=== PATIENT | female | born 1960 | race Caucasian/White ===

== ENCOUNTER 2020-12-24 14:49 | Inpatient (IN) | payer MEDICARE, OTHER ==
[~2020-12-24] VITALS: Ht 154.9 cm; Wt 67.1 kg
[2020-12-24] MEDS ORDERED: ATOR20TA PO (15:04)
[2020-12-24] MEDS ORDERED: LISI30TA4 PO (15:04)
[2020-12-24] MEDS ORDERED: QUET50TA PO (15:04)
[2020-12-24] MEDS ORDERED: OLAN20TA3 PO (15:04)
[2020-12-24 16:17] LABS: HEMATOCRIT 37.8 % (31.2-41.9); MEAN CORPUSCULAR VOLUME 89.3 fL (75.5-95.3); PLATELET COUNT (AUTO) 220 K/uL (179-408)
[2020-12-24 16:33] LABS: CARBON DIOXIDE 27 mmol/L (21-32); CHLORIDE 97 mmol/L (98-107); CREATININE 0.8 mg/dL (0.6-1.3); GLUCOSE 105 mg/dL (74-106); POTASSIUM 4.2 mmol/L (3.5-5.1); UREA NITROGEN, BLOOD 23 mg/dL (7-18)
[2020-12-24 16:37] LABS: ALANINE AMINOTRANSFERASE 30 U/L (14-59); ALKALINE PHOSPHATASE 80 U/L (50-136); ASPARTATE AMINOTRANSFERASE 20 U/L (15-37); BILIRUBIN,DIRECT 0.1 mg/dL (0.0-0.2); BILIRUBIN,TOTAL 0.2 mg/dL (0.2-1.0); TOTAL PROTEIN, SERUM 7.9 g/dL (6.4-8.2)
[2020-12-24 16:42] LABS: THYROID STIMULATING HORMONE 0.577 mIU/mL (0.358-3.740)
[2020-12-24 16:43] LABS: ACETAMINOPHEN < 2.0 ug/mL (10-30)
[2020-12-24 16:44] LABS: ETHANOL < 3 MG/DL (0-0)
[2020-12-24 17:05] LABS: *BILIRUBIN,URIN NEGATIVE (NEGATIVE); *CLARITY,URINE CLEAR (CLEAR); *COLOR,URINE LIGHT YELLOW (YELLOW); *KETONES,URINE NEGATIVE (NEGATIVE); *UROBILINOGEN,URINE 0.2 E.U./dl (NORMAL); LEUKOCYTE ESTERASE ,URINE TRACE (NEGATIVE); NITRITE, URINE NEGATIVE (NEGATIVE); PH,URINE 6.5 (5.0-8.0); UGLUCOSE NEGATIVE (NEGATIVE)
[2020-12-24 17:15] LABS: *AMPHETAMINE, URINE NEGATIVE (NEGATIVE); *BLOOD, URINE TRACE LYSED (NEGATIVE); *CANNABINOID, URINE NEGATIVE (NEGATIVE); *COCCAINE, URINE NEGATIVE (NEGATIVE); *OPIATE, URINE NEGATIVE (NEGATIVE); *PHENCYCLIDINE SCREEN,URINE NEGATIVE (NEGATIVE)
[2020-12-24 18:05] LABS: BACTERIA,URINE NONE SEEN /HPF (NONE SEEN); RBC,URINE 0-3 /HPF (0-3); WBC,URINE 0-3 /HPF (0-3)
[2020-12-24] MEDS ORDERED: OLANZAPINE 10 MG VIAL IM ONE ×2 (18:30→18:37)
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
[2020-12-24] MEDS ORDERED: LORAZEPAM 2 MG/1 ML VIAL IM ONE (20:00)
[2020-12-24] MEDS ORDERED: LORAZEPAM 2 MG/1 ML VIAL ONE (20:03)
[2020-12-24] MEDS ORDERED: KETAMINE HCL 500 MG/10 ML INJ ONE (20:30)
[2020-12-24] MEDS ORDERED: KETAMINE HCL 500 MG/10 ML INJ IM ONE (20:30)
[2020-12-24] MEDS ORDERED: ONDANSETRON 4 MG/2 ML VIAL IM ONE (22:00)
--- NOTE | 2020-12-24 22:20 | NUR ---
GAVE REPORT TO MILES VILLALPANDO.
[2020-12-24] MEDS ORDERED: ONDANSETRON 4 MG/2 ML VIAL ONE (22:21)
[2020-12-24] MEDS ORDERED: MAGNESIUM HYDROXIDE 30 ML LIQUID UDC PO PRN (22:45)
[2020-12-24] MEDS ORDERED: LORAZEPAM 1 MG TABLET PO PRN (22:45)
[2020-12-24] MEDS ORDERED: MAG HYDROX/AL HYDROX/SIMETH 30 ML LIQUID UDC PO PRN (22:45)
[2020-12-24] MEDS ORDERED: ACETAMINOPHEN 325 MG TABLET PO PRN (22:45)
[2020-12-24] MEDS ORDERED: TEMAZEPAM 7.5 MG CAPSULE PO PRN (22:45)
--- NOTE | 2020-12-24 23:00 | NUR ---
Pt. admitted to [facility] , under care of Dr. Cuadra and Dyana. Dx: psychosis 5150 hld DTO, GD. Belongs List completed
[2020-12-24 23:17] VITALS: BP 122/81
[2020-12-24] MEDS ORDERED: hydrALAZINE HCL 10 MG TABLET PO PRN (23:30)
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
[2020-12-25 07:30] VITALS: BP 98/68
[2020-12-25] MEDS: NICOTINE 21 MG/24HR PATCH TD SCH (08:34)
[2020-12-25] MEDS: LISINOPRIL 20 MG TABLET PO SCH (08:34)
[2020-12-25] MEDS ORDERED: Medication Not On Formulary EA (Quetiapine Fumarate (Seroquel) 50 MG) PO SCH (09:00)
[2020-12-25 09:26] LABS: BILIRUBIN,TOTAL 0.2 mg/dL (0.2-1.0); CREATININE 0.8 mg/dL (0.6-1.3); POTASSIUM 4.3 mmol/L (3.5-5.1); TOTAL PROTEIN, SERUM 7.2 g/dL (6.4-8.2)
--- NOTE | 2020-12-25 09:50 | NUR ---
EDWIGE Initial Discharge Plan: Pt resides at [facility] [address], [place] [address] ([phone]) and will return when ready for discharge. EDWIGE will continue to work with patient and MD to ensure a safe and proper discharge plan.
--- NOTE | 2020-12-25 10:08 | NUR ---
SW Facility Contact: EDWIGE spoke with Vic from [facility] [address], [place] [address] ([phone]) who confirmed patient is welcome back upon discharge.
--- NOTE | 2020-12-25 10:27 | NUR ---
Firearms Report: Polytechnic Registrar completed and submitted a [employer] firearms report for 5150 grave disability certifications. A copy of report has been placed in patient chart.
--- NOTE | 2020-12-25 10:41 | NUR ---
EDWIGE Conservator Contact: EDWIGE contacted Public Guardian Conservator Carolyn Grewal ([phone]) and left a voicemail for request conservatorship documentation and discuss patient's treatment and discharge plan.
[2020-12-25 16:27] VITALS: BP 110/73
[2020-12-25 20:00] VITALS: BP 119/81
[2020-12-25] MEDS: ATORVASTATIN 20 MG TABLET PO SCH (20:21)
[2020-12-25] MEDS: OLANZAPINE 5 MG TABLET PO SCH (20:21)
[2020-12-25] MEDS: DIVALPROEX 250 MG TABLET.DR PO SCH (20:21)
[2020-12-26 07:52] VITALS: BP 126/82
[2020-12-26] MEDS: NICOTINE 21 MG/24HR PATCH TD SCH (08:08)
[2020-12-26] MEDS: DIVALPROEX 250 MG TABLET.DR PO SCH ×2 (08:08→20:33)
[2020-12-26] MEDS: LISINOPRIL 20 MG TABLET PO SCH (08:08)
[2020-12-26 16:32] VITALS: BP 111/75
[2020-12-26 20:00] VITALS: BP 106/70
[2020-12-26] MEDS: ATORVASTATIN 20 MG TABLET PO SCH (20:33)
[2020-12-26] MEDS: OLANZAPINE 5 MG TABLET PO SCH (20:33)
[2020-12-27 07:30] VITALS: BP 134/87
[2020-12-27] MEDS: LISINOPRIL 20 MG TABLET PO SCH (08:03)
[2020-12-27] MEDS: NICOTINE 21 MG/24HR PATCH TD SCH (08:03)
[2020-12-27] MEDS: DIVALPROEX 250 MG TABLET.DR PO SCH ×3 (08:03→20:03)
[2020-12-27 15:50] VITALS: BP 112/83
[2020-12-27 19:58] VITALS: BP 128/77
[2020-12-27] MEDS: ATORVASTATIN 20 MG TABLET PO SCH (20:03)
[2020-12-27] MEDS: OLANZAPINE 5 MG TABLET PO SCH (20:04)
[2020-12-28 08:12] VITALS: BP 137/88
[2020-12-28] MEDS: NICOTINE 21 MG/24HR PATCH TD SCH (08:52)
[2020-12-28] MEDS: DIVALPROEX 250 MG TABLET.DR PO SCH ×3 (08:52→20:05)
[2020-12-28] MEDS: LISINOPRIL 20 MG TABLET PO SCH (08:53)
[2020-12-28 16:14] VITALS: BP 133/91
[2020-12-28 19:53] VITALS: BP 100/60
[2020-12-28] MEDS: OLANZAPINE 5 MG TABLET PO SCH (20:05)
[2020-12-28] MEDS: ATORVASTATIN 20 MG TABLET PO SCH (20:05)
[2020-12-29 07:30] VITALS: BP 122/80
[2020-12-29] MEDS: NICOTINE 21 MG/24HR PATCH TD SCH (08:28)
[2020-12-29] MEDS: DIVALPROEX 250 MG TABLET.DR PO SCH ×3 (08:29→20:01)
[2020-12-29] MEDS: LISINOPRIL 20 MG TABLET PO SCH (08:29)
--- NOTE | 2020-12-29 11:02 | NUR ---
GPS: PT RECEIVED TODAY, AWAKE, PACING THE HALLWAY.PT WENT BACK TO HER ROOM LAYING DOWN QUIETLY. COMPLIANT WITH MEDICATIONS AND COOPERATIVE WITH CARE.
[2020-12-29 16:07] VITALS: BP 106/66
--- NOTE | 2020-12-29 17:32 | NUR ---
GPS: PT LIKES PACING THE HALLWAY. COOPERATIVE WITH CARE AND COMPLIANT WITH MEDICATIONS. PT WITH NO EPISODE OF YELLING, NOT VERBALLY ABUSIVE, AND NOT COMBATIVE.
[2020-12-29] MEDS: OLANZAPINE 5 MG TABLET PO SCH (20:01)
[2020-12-29] MEDS: ATORVASTATIN 20 MG TABLET PO SCH (20:01)
[2020-12-29 22:02] VITALS: BP 101/61
--- NOTE | 2020-12-30 01:24 | NUR ---
Received patient at the start of the shift in bed, with the covers pulled over her head. The blanket she used was stained with BM. This patient is alert and oriented but has no insight to her problems and bizarre behavior. The patient got up and spent about 30 minutes, pacing up and down the bagley, periodically stopping at the nurses station asking for food. No aggressive or combative behavior, and no SI at this time. Patient has been cooperative and medication compliant. Continuing with the plan of care and safety stratiges are in place.
[2020-12-30 07:30] VITALS: BP 119/88
[2020-12-30] MEDS: NICOTINE 21 MG/24HR PATCH TD SCH (08:08)
[2020-12-30] MEDS: LISINOPRIL 20 MG TABLET PO SCH (08:08)
[2020-12-30] MEDS: DIVALPROEX 250 MG TABLET.DR PO SCH ×3 (08:08→20:17)
[2020-12-30 16:00] VITALS: BP 112/67
--- NOTE | 2020-12-30 16:56 | NUR ---
GPS: Remain calm and cooperative with meds and care. occ pacing in the hallway. continue plan of care.
[2020-12-30 20:01] VITALS: BP 95/64
[2020-12-30] MEDS: ATORVASTATIN 20 MG TABLET PO SCH (20:17)
[2020-12-30] MEDS: OLANZAPINE 5 MG TABLET PO SCH (20:17)
[2020-12-31 07:30] VITALS: BP 108/76
[2020-12-31] MEDS ORDERED: OLANZAPINE 5 MG TABLET PO SCH (09:00)
[2020-12-31] MEDS: NICOTINE 21 MG/24HR PATCH TD SCH (09:35)
[2020-12-31] MEDS: DIVALPROEX 250 MG TABLET.DR PO SCH ×3 (09:36→20:37)
[2020-12-31] MEDS: LISINOPRIL 20 MG TABLET PO SCH (09:37)
--- NOTE | 2020-12-31 12:06 | NUR ---
GPS: HEARING DONE WITH PATIENTS RIGHTS PENNY AND COURT AND PT WILL STAY FOR GD. RIGHTS WERE GIVEN AND MET PER PT.
--- NOTE | 2020-12-31 13:57 | NUR ---
SW Facility Contact EDWIGE spoke with Armando at [facility] ([phone]) to confirm SNF can receive patient as she is ready for discharge tomorrow. Armando confirmed they are ready for patient tomorrow and requested updated clinicals. SW faxed Armando ([phone]) patient's updated clinicals.
--- NOTE | 2020-12-31 14:41 | NUR ---
Gps/Thread Singer - easily gets anxious, needy, encouraged to stay in her group therapy during their group sessions, kept asking for drinks and food s, complained of being constipated, prune juice offered.
[2020-12-31 16:00] VITALS: BP 111/77
--- NOTE | 2020-12-31 16:27 | NUR ---
Gps/Environmental Field Technician- Covid 19 swab done, sent to lab. patient was well informed.
[2020-12-31 20:07] VITALS: BP 106/77
[2020-12-31] MEDS: ATORVASTATIN 20 MG TABLET PO SCH (20:37)
[2020-12-31] MEDS: OLANZAPINE 5 MG TABLET PO SCH (20:37)
--- NOTE | 2021-01-01 04:15 | NUR ---
Received to care, lying in bed, isolative, but pleasant, when approached. Compliant with medications. Bedtime snack and fluids were given. As of now she continues to sleep. No distress noted.
[2021-01-01 07:30] VITALS: BP 100/63
[2021-01-01 08:07] VITALS: BP 100/63
[2021-01-01] MEDS: LISINOPRIL 20 MG TABLET PO SCH (08:07)
[2021-01-01] MEDS: NICOTINE 21 MG/24HR PATCH TD SCH (08:09)
[2021-01-01] MEDS: DIVALPROEX 250 MG TABLET.DR PO SCH ×2 (08:09→12:20)
--- NOTE | 2021-01-01 08:27 | NUR ---
EDWIGE Discharge Note Pt will be discharged to [facility] [address], [place] [address] ([phone]) via ambulance transportation at 1PM. EDWIGE spoke with ramon Ho from [facility], who confirmed pt is welcome back today. Pt presents alert and oriented x3 and is willing to accept care provided for her at facility. Pt is aware and agreeable with discharge plan. Pt presents with appropriate mood and congruent affect. Pt denies suicidal or homicidal ideation. Pt will follow up at [facility] with psychiatrist Dr. Suazo and educational program director Dr. Yanez. Patients conservator Carolyn Grewal ([phone]) is aware and agreeable with discharge plan.
--- NOTE | 2021-01-01 12:14 | NUR ---
Gps/Filemaker Developer- tried to call [facility] to give report, unable at this time, no one available to get report at the facility claimed they are busy, will attempt to call back in 30 minutes
--- NOTE | 2021-01-01 13:20 | NUR ---
Gps/Electric Appliance Installer- Discharged to [facility] via ambulance. in no sign of any distress, all belongings given back to patient , no complaints noted . still unable to to give report to Facility , staff are busy to received report, will again attempt to call at a later time. .
--- NOTE | 2021-01-01 14:27 | NUR ---
Gps/Electrical Plumbing Supervisor- Attempted to call facility for the 3rd time to give report, unable , r/t no one to receive report per frontdesk Sec. staff are busy.
--- NOTE | 2021-01-01 15:45 | NUR ---
Gps/Cell Operator- tried to call again to give report, was put on hold for a long time
== END 2021-01-01 13:35 | DRG 885 ==
LOC: ER 14:49 → GPS 22:42
PROVIDERS: ADMIT Nurse Practitioner Psychiatric/Mental Health; ATTEND Internal Medicine
DX: F25.9 Schizoaffective disorder, unspecified (principal); E78.5 Hyperlipidemia, unspecified; I10 Essential (primary) hypertension; I44.7 Left bundle-branch block, unspecified; I49.1 Atrial premature depolarization; Z78.1 Physical restraint status; R79.89 Other specified abnormal findings of blood chemistry; F09 Unspecified mental disorder due to known physiological condition
CPT/HCPCS: 36415; 71045; 80164; 84443; 85025; 93005; A4663; G0480; J2060; J2358; J2405; J3490

== ENCOUNTER 2022-10-06 00:30 | Inpatient (IN) | payer MEDICARE, OTHER ==
[~2022-10-06] VITALS: Ht 167.6 cm; Wt 74.4 kg
[~2022-10-06 00:30] MED LIST: ATOR20TA PO; LISI30TA4 PO
[2022-10-06 00:48] LABS: BASOPHILS % (AUTO) 0.7 % (0.0-2.0); EOSINOPHILS # (AUTO) 0.1 K/uL (0.0-0.7); EOSINOPHILS % (AUTO) 1.8 % (0.0-7.0); HEMATOCRIT 37.2 % (31.2-41.9); HEMOGLOBIN 12.5 g/dL (10.9-14.3); LYMPHOCYTES # (AUTO) 3.1 K/uL (0.8-4.8); MEAN CORPUSCULAR HEMOGLOBIN 29.9 uug (24.7-32.8); MEAN CORPUSCULAR HGB CONC 34 g/dL (32.3-35.6); MEAN CORPUSCULAR VOLUME 88.8 fL (75.5-95.3); MONOCYTES # (AUTO) 0.8 K/uL (0.1-1.30); MONOCYTES % (AUTO) 12.7 % (0.0-11.0); NEUTROPHILS # (AUTO) 2.5 K/uL (1.8-8.9); NEUTROPHILS % (AUTO) 37.8 % (38.5-71.5); PLATELET COUNT (AUTO) 233 K/uL (179-408); RED BLOOD CELL COUNT(AUTO) 4.19 MIL/uL (3.63-4.92); RED CELL DISTRIBUTION WIDTH 14.5 % (12.3-17.7); WHITE BLOOD COUNT (AUTO) 6.6 K/uL (3.8-11.8)
[2022-10-06 01:01] LABS: *BILIRUBIN,URIN NEGATIVE (NEGATIVE); *CLARITY,URINE CLEAR (CLEAR); *COLOR,URINE YELLOW (YELLOW); *KETONES,URINE NEGATIVE (NEGATIVE); *PROTEIN,URINE NEGATIVE (NEGATIVE); *UROBILINOGEN,URINE 0.2 E.U./dl (NORMAL); LEUKOCYTE ESTERASE ,URINE 1+ (NEGATIVE); NITRITE, URINE NEGATIVE (NEGATIVE); UGLUCOSE NEGATIVE (NEGATIVE)
[2022-10-06 01:03] LABS: *BLOOD, URINE TRACE (NEGATIVE)
[2022-10-06 01:04] LABS: ETHANOL < 3 MG/DL (0-10)
[2022-10-06 01:09] LABS: DIFFERENTIAL COMMENT 1
[2022-10-06 01:10] LABS: THYROID STIMULATING HORMONE 3.002 mIU/mL (0.358-3.740)
[2022-10-06 01:10] LABS: *AMPHETAMINE, URINE NEGATIVE (NEGATIVE); *BARBITURATE, URINE NEGATIVE (NEGATIVE); *BENZODIAZEPINE, URINE NEGATIVE (NEGATIVE); *CANNABINOID, URINE NEGATIVE (NEGATIVE); *OPIATE, URINE NEGATIVE (NEGATIVE); *PHENCYCLIDINE SCREEN,URINE NEGATIVE (NEGATIVE); FENTANYL, URINE NEGATIVE (NEGATIVE)
[2022-10-06] MEDS ORDERED: ACET-3117 PO (01:19)
[2022-10-06] MEDS ORDERED: DEME300T12 PO (01:19)
[2022-10-06] MEDS ORDERED: LISI30TA4 PO (01:19)
[2022-10-06] MEDS ORDERED: SODI100010 PO (01:19)
[2022-10-06] MEDS ORDERED: OLAN20TA24 PO (01:19)
[2022-10-06] MEDS ORDERED: ATOR20TA PO (01:19)
[2022-10-06] MEDS ORDERED: LORA-259 PO (01:19)
[2022-10-06 01:32] LABS: *COCCAINE, URINE NEGATIVE (NEGATIVE)
[2022-10-06 01:50] LABS: ALANINE AMINOTRANSFERASE 27 U/L (14-59); ALBUMIN 3.5 g/dL (3.4-5.0); ALKALINE PHOSPHATASE 106 U/L (50-136); ASPARTATE AMINOTRANSFERASE 14 U/L (15-37); BILIRUBIN,DIRECT 0.1 mg/dL (0.0-0.2); BILIRUBIN,TOTAL 0.3 mg/dL (0.2-1.0); CALCIUM 9.5 mg/dL (8.5-10.1); CARBON DIOXIDE 25 mmol/L (21-32); CHLORIDE 94 mmol/L (98-107); CREATININE 0.8 mg/dL (0.6-1.3); GLUCOSE 104 mg/dL (74-106); POTASSIUM 4.2 mmol/L (3.5-5.1); SODIUM SERUM 129 mmol/L (136-145); TOTAL PROTEIN, SERUM 7.4 g/dL (6.4-8.2); UREA NITROGEN, BLOOD 11 mg/dL (7-18)
[2022-10-06 01:52] LABS: ACETAMINOPHEN < 2.0 ug/mL (10-30)
[2022-10-06 04:29] LABS: BACTERIA,URINE NONE SEEN /HPF (NONE SEEN); SQUAMOUS EPITHELIAL CELL,UR FEW /HPF (NONE SEEN)
[2022-10-06] MEDS ORDERED: CEFTRIAXONE /D5W 50ML IVPB **ER PYXIS IV ONE (05:51)
[2022-10-06] MEDS ORDERED: CEFTRIAXONE 1 G in IV DEXTROSE 5% 50 ML IV ONE (06:00)
[2022-10-06] MEDS ORDERED: IV NORMAL SALINE 250 ML IV ONE (06:00)
[2022-10-06] MEDS ORDERED: ACETAMINOPHEN 325 MG TABLET PO PRN (08:30)
[2022-10-06] MEDS ORDERED: MAG HYDROX/AL HYDROX/SIMETH 30 ML LIQUID UDC PO PRN (08:30)
[2022-10-06] MEDS ORDERED: MAGNESIUM HYDROXIDE 30 ML LIQUID UDC PO PRN (08:30)
[2022-10-06] MEDS ORDERED: BLOOD SUGAR DIAGNOSTIC 1 EACH STRIP VI ONE (08:30)
[2022-10-06] MEDS ORDERED: TEMAZEPAM 7.5 MG CAPSULE PO PRN (08:30)
[2022-10-06 08:46] VITALS: BP 102/80; TEMP 98.5; O2SAT 96
[2022-10-06] MEDS: DIVALPROEX SPRINKLE 125 MG CAP.SPRINK PO SCH ×3 (13:00→17:36)
[2022-10-06] MEDS: SODIUM CHLORIDE 1,000 MG TABLET PO SCH ×3 (13:39→20:19)
[2022-10-06] MEDS: QUETIAPINE FUMARATE 25 MG TABLET PO SCH (13:40)
[2022-10-06 15:15] VITALS: BP 139/84; TEMP 98.2; O2SAT 98
[2022-10-06 20:13] VITALS: BP 148/80; TEMP 98.1; O2SAT 96
[2022-10-06] MEDS: DEMECLOCYCLINE HCL 300 MG TABLET PO SCH (20:19)
[2022-10-06] MEDS: ATORVASTATIN 20 MG TABLET PO SCH (20:19)
[2022-10-06] MEDS: OLANZAPINE 5 MG TABLET PO SCH (20:19)
[2022-10-06] MEDS ORDERED: ATORVASTATIN 20 MG TABLET PO SCH (21:00)
[2022-10-07] MEDS: CEphaleXIN 250 MG CAPSULE PO SCH ×3 (06:39→21:44)
[2022-10-07 08:04] VITALS: BP 143/96; TEMP 98.4; O2SAT 98
[2022-10-07] MEDS: SODIUM CHLORIDE 1,000 MG TABLET PO SCH ×4 (08:11→21:44)
[2022-10-07] MEDS: QUETIAPINE FUMARATE 25 MG TABLET PO SCH ×2 (08:11→12:10)
[2022-10-07] MEDS: DIVALPROEX SPRINKLE 125 MG CAP.SPRINK PO SCH ×3 (08:11→16:41)
[2022-10-07] MEDS: DEMECLOCYCLINE HCL 300 MG TABLET PO SCH ×2 (08:12→21:45)
[2022-10-07] MEDS: LISINOPRIL 20 MG TABLET PO SCH (08:14)
[2022-10-07 08:38] LABS: BASOPHILS % (AUTO) 0.5 % (0.0-2.0); EOSINOPHILS # (AUTO) 0.1 K/uL (0.0-0.7); EOSINOPHILS % (AUTO) 0.8 % (0.0-7.0); HEMATOCRIT 36.5 % (31.2-41.9); HEMOGLOBIN 12.1 g/dL (10.9-14.3); LYMPHOCYTES % (AUTO) 30.7 % (20.5-51.5); MEAN CORPUSCULAR HEMOGLOBIN 29.7 uug (24.7-32.8); MEAN CORPUSCULAR HGB CONC 33 g/dL (32.3-35.6); MEAN CORPUSCULAR VOLUME 89.5 fL (75.5-95.3); MONOCYTES # (AUTO) 0.8 K/uL (0.1-1.30); MONOCYTES % (AUTO) 12.3 % (0.0-11.0); NEUTROPHILS # (AUTO) 3.7 K/uL (1.8-8.9); NEUTROPHILS % (AUTO) 55.7 % (38.5-71.5); PLATELET COUNT (AUTO) 255 K/uL (179-408); RED BLOOD CELL COUNT(AUTO) 4.08 MIL/uL (3.63-4.92); RED CELL DISTRIBUTION WIDTH 14.5 % (12.3-17.7); WHITE BLOOD COUNT (AUTO) 6.6 K/uL (3.8-11.8)
[2022-10-07 08:44] LABS: DIFFERENTIAL COMMENT 1
[2022-10-07 09:37] LABS: POTASSIUM 4.6 mmol/L (3.5-5.1)
[2022-10-07 09:38] LABS: ALBUMIN 3.7 g/dL (3.4-5.0); BILIRUBIN,TOTAL 0.3 mg/dL (0.2-1.0); CALCIUM 9.1 mg/dL (8.5-10.1); CREATININE 0.8 mg/dL (0.6-1.3)
[2022-10-07 09:39] LABS: TOTAL PROTEIN, SERUM 7.8 g/dL (6.4-8.2)
[2022-10-07 15:27] VITALS: BP 157/83; TEMP 98; O2SAT 98
[2022-10-07 20:01] VITALS: BP 165/69; TEMP 98; O2SAT 98
[2022-10-07] MEDS: ATORVASTATIN 20 MG TABLET PO SCH (21:44)
[2022-10-07] MEDS: OLANZAPINE 5 MG TABLET PO SCH (21:45)
[2022-10-08] MEDS: CEphaleXIN 250 MG CAPSULE PO SCH ×3 (06:28→21:36)
[2022-10-08 07:53] VITALS: BP 148/98; TEMP 98; O2SAT 98
[2022-10-08] MEDS: QUETIAPINE FUMARATE 25 MG TABLET PO SCH ×2 (08:22→12:24)
[2022-10-08] MEDS: LISINOPRIL 20 MG TABLET PO SCH (08:22)
[2022-10-08] MEDS: SODIUM CHLORIDE 1,000 MG TABLET PO SCH ×4 (08:22→21:37)
[2022-10-08] MEDS: DIVALPROEX SPRINKLE 125 MG CAP.SPRINK PO SCH ×3 (08:22→16:13)
[2022-10-08 08:23] LABS: CALCIUM 9.1 mg/dL (8.5-10.1); CREATININE 0.7 mg/dL (0.6-1.3); MAGNESIUM 1.9 mg/dL (1.8-2.4); PHOSPHOROUS 4.6 mg/dL (2.5-4.9); POTASSIUM 4.3 mmol/L (3.5-5.1); URIC ACID 3.5 mg/dL (2.6-6.0)
[2022-10-08] MEDS: DEMECLOCYCLINE HCL 300 MG TABLET PO SCH ×2 (08:25→21:36)
[2022-10-08 08:54] LABS: THYROID STIMULATING HORMONE 0.394 mIU/mL (0.358-3.740)
[2022-10-08 16:16] VITALS: BP 108/63; TEMP 98; O2SAT 98
[2022-10-08 20:00] VITALS: BP 118/71; TEMP 97.7; O2SAT 95
[2022-10-08] MEDS: OLANZAPINE 5 MG TABLET PO SCH (21:36)
[2022-10-08] MEDS: ATORVASTATIN 20 MG TABLET PO SCH (21:36)
[2022-10-09] MEDS: CEphaleXIN 250 MG CAPSULE PO SCH ×3 (06:08→21:10)
[2022-10-09 08:28] VITALS: BP 151/85; TEMP 98; O2SAT 100
[2022-10-09] MEDS: DIVALPROEX SPRINKLE 125 MG CAP.SPRINK PO SCH ×3 (09:11→17:31)
[2022-10-09] MEDS: LISINOPRIL 20 MG TABLET PO SCH (09:11)
[2022-10-09] MEDS: QUETIAPINE FUMARATE 25 MG TABLET PO SCH ×2 (09:11→13:00)
[2022-10-09] MEDS: SODIUM CHLORIDE 1,000 MG TABLET PO SCH ×4 (09:11→21:10)
[2022-10-09] MEDS: DEMECLOCYCLINE HCL 300 MG TABLET PO SCH ×2 (09:16→21:10)
[2022-10-09 16:22] VITALS: BP 129/73; TEMP 98.3; O2SAT 100
[2022-10-09 20:01] VITALS: BP 141/74; TEMP 98.2; O2SAT 99
[2022-10-09] MEDS: OLANZAPINE 5 MG TABLET PO SCH (21:10)
[2022-10-09] MEDS: ATORVASTATIN 20 MG TABLET PO SCH (21:10)
[2022-10-10] MEDS: CEphaleXIN 250 MG CAPSULE PO SCH ×3 (05:06→21:39)
[2022-10-10 07:55] VITALS: BP 157/98; TEMP 98; O2SAT 98
[2022-10-10] MEDS: SODIUM CHLORIDE 1,000 MG TABLET PO SCH ×4 (08:30→20:42)
[2022-10-10] MEDS: LISINOPRIL 20 MG TABLET PO SCH (08:30)
[2022-10-10] MEDS: DIVALPROEX SPRINKLE 125 MG CAP.SPRINK PO SCH ×3 (08:30→16:42)
[2022-10-10] MEDS: QUETIAPINE FUMARATE 25 MG TABLET PO SCH ×2 (08:30→12:24)
[2022-10-10] MEDS: DEMECLOCYCLINE HCL 300 MG TABLET PO SCH ×2 (08:32→20:43)
[2022-10-10 18:19] LABS: *SODIUM RNDM,URINE 27 mmol/L (40-220)
[2022-10-10 19:49] VITALS: BP 130/76; TEMP 98.2; O2SAT 97
[2022-10-10] MEDS: ATORVASTATIN 20 MG TABLET PO SCH (20:42)
[2022-10-10] MEDS: OLANZAPINE 5 MG TABLET PO SCH (20:42)
[2022-10-11] MEDS: CEphaleXIN 250 MG CAPSULE PO SCH ×3 (06:30→21:01)
[2022-10-11 08:07] VITALS: BP 109/73; TEMP 98.4; O2SAT 98
[2022-10-11] MEDS: DIVALPROEX SPRINKLE 125 MG CAP.SPRINK PO SCH ×3 (08:49→17:37)
[2022-10-11] MEDS: DEMECLOCYCLINE HCL 300 MG TABLET PO SCH (08:49)
[2022-10-11] MEDS: SODIUM CHLORIDE 1,000 MG TABLET PO SCH ×4 (08:49→20:54)
[2022-10-11] MEDS: LISINOPRIL 20 MG TABLET PO SCH (08:50)
[2022-10-11] MEDS: QUETIAPINE FUMARATE 25 MG TABLET PO SCH ×2 (08:51→12:24)
[2022-10-11 15:26] VITALS: BP 146/105; TEMP 98; O2SAT 98
[2022-10-11 20:14] VITALS: BP 143/77; TEMP 98.1; O2SAT 96
[2022-10-11] MEDS: ATORVASTATIN 20 MG TABLET PO SCH (20:54)
[2022-10-11] MEDS: OLANZAPINE 5 MG TABLET PO SCH (20:55)
[2022-10-12] MEDS: CEphaleXIN 250 MG CAPSULE PO SCH (05:54)
[2022-10-12 07:30] VITALS: BP 184/102; TEMP 97.9; O2SAT 97
[2022-10-12] MEDS: LISINOPRIL 20 MG TABLET PO SCH (08:43)
[2022-10-12] MEDS: SODIUM CHLORIDE 1,000 MG TABLET PO SCH ×4 (08:43→21:12)
[2022-10-12] MEDS: DIVALPROEX SPRINKLE 125 MG CAP.SPRINK PO SCH ×3 (08:43→16:23)
[2022-10-12] MEDS: QUETIAPINE FUMARATE 25 MG TABLET PO SCH ×2 (08:44→13:06)
[2022-10-12 10:19] LABS: CALCIUM 9.1 mg/dL (8.5-10.1); CREATININE 0.8 mg/dL (0.6-1.3); MAGNESIUM 1.9 mg/dL (1.8-2.4); PHOSPHOROUS 3.8 mg/dL (2.5-4.9); POTASSIUM 4.2 mmol/L (3.5-5.1)
[2022-10-12 15:47] VITALS: BP 117/73; TEMP 97.7; O2SAT 96
[2022-10-12] MEDS: OLANZAPINE 5 MG TABLET PO SCH (21:12)
[2022-10-12] MEDS: ATORVASTATIN 20 MG TABLET PO SCH (21:12)
[2022-10-12 22:25] VITALS: BP 132/78; TEMP 98.3; O2SAT 98
[2022-10-13 08:10] VITALS: BP 147/98; TEMP 98; O2SAT 99
[2022-10-13] MEDS: SODIUM CHLORIDE 1,000 MG TABLET PO SCH ×4 (08:19→20:18)
[2022-10-13] MEDS: LISINOPRIL 20 MG TABLET PO SCH (08:19)
[2022-10-13] MEDS: DIVALPROEX SPRINKLE 125 MG CAP.SPRINK PO SCH ×3 (08:31→17:36)
[2022-10-13] MEDS: QUETIAPINE FUMARATE 25 MG TABLET PO SCH ×2 (08:31→12:50)
[2022-10-13 15:34] VITALS: BP 142/94; TEMP 98; O2SAT 99
[2022-10-13 19:56] VITALS: BP 104/67; TEMP 98; O2SAT 98
[2022-10-13] MEDS: OLANZAPINE 5 MG TABLET PO SCH (20:18)
[2022-10-13] MEDS: ATORVASTATIN 20 MG TABLET PO SCH (20:18)
[2022-10-14 08:00] VITALS: BP 155/82; TEMP 97.2; O2SAT 98
[2022-10-14 08:32] LABS: BASOPHILS # (AUTO) 0.2 K/UL (0.0-0.2); EOSINOPHILS # (AUTO) 0.2 K/uL (0.0-0.7); EOSINOPHILS % (AUTO) 1.9 % (0.0-7.0); HEMATOCRIT 36.3 % (31.2-41.9); HEMOGLOBIN 12.5 g/dL (10.9-14.3); LYMPHOCYTES # (AUTO) 2.6 K/uL (0.8-4.8); LYMPHOCYTES % (AUTO) 30.5 % (20.5-51.5); MEAN CORPUSCULAR HGB CONC 34 g/dL (32.3-35.6); MEAN CORPUSCULAR VOLUME 90.1 fL (75.5-95.3); MONOCYTES # (AUTO) 0.8 K/uL (0.1-1.30); MONOCYTES % (AUTO) 10.1 % (0.0-11.0); NEUTROPHILS # (AUTO) 4.6 K/uL (1.8-8.9); NEUTROPHILS % (AUTO) 55.5 % (38.5-71.5); PLATELET COUNT (AUTO) 244 K/uL (179-408); RED BLOOD CELL COUNT(AUTO) 4.03 MIL/uL (3.63-4.92); RED CELL DISTRIBUTION WIDTH 14.1 % (12.3-17.7); WHITE BLOOD COUNT (AUTO) 8.4 K/uL (3.8-11.8)
[2022-10-14 08:36] LABS: DIFFERENTIAL COMMENT 1
[2022-10-14 08:41] LABS: CALCIUM 9.1 mg/dL (8.5-10.1); CREATININE 0.6 mg/dL (0.6-1.3); POTASSIUM 4.8 mmol/L (3.5-5.1)
[2022-10-14] MEDS: LISINOPRIL 20 MG TABLET PO SCH (09:13)
[2022-10-14] MEDS: QUETIAPINE FUMARATE 25 MG TABLET PO SCH ×2 (09:13→12:24)
[2022-10-14] MEDS: DIVALPROEX SPRINKLE 125 MG CAP.SPRINK PO SCH ×3 (09:13→17:00)
[2022-10-14] MEDS: SODIUM CHLORIDE 1,000 MG TABLET PO SCH ×4 (09:14→20:57)
[2022-10-14 20:00] VITALS: BP 92/64; TEMP 98.1; O2SAT 96
[2022-10-14] MEDS: ATORVASTATIN 20 MG TABLET PO SCH (20:56)
[2022-10-14] MEDS: OLANZAPINE 5 MG TABLET PO SCH (20:57)
[2022-10-15 07:53] VITALS: BP 157/97; TEMP 98.2; O2SAT 100
[2022-10-15] MEDS: SODIUM CHLORIDE 1,000 MG TABLET PO SCH ×4 (08:24→20:19)
[2022-10-15] MEDS: DIVALPROEX SPRINKLE 125 MG CAP.SPRINK PO SCH ×3 (08:24→16:27)
[2022-10-15] MEDS: LISINOPRIL 20 MG TABLET PO SCH (08:25)
[2022-10-15] MEDS: QUETIAPINE FUMARATE 25 MG TABLET PO SCH ×2 (08:25→12:35)
[2022-10-15 16:20] VITALS: BP 132/79; TEMP 98.4; O2SAT 100
[2022-10-15] MEDS: ATORVASTATIN 20 MG TABLET PO SCH (20:19)
[2022-10-15] MEDS: OLANZAPINE 5 MG TABLET PO SCH (20:19)
[2022-10-15 20:40] VITALS: BP 115/80; TEMP 98.2; O2SAT 98
[2022-10-16 07:57] LABS: BASOPHILS % (AUTO) 0.7 % (0.0-2.0); EOSINOPHILS % (AUTO) 0.7 % (0.0-7.0); HEMATOCRIT 37.2 % (31.2-41.9); HEMOGLOBIN 12.5 g/dL (10.9-14.3); LYMPHOCYTES # (AUTO) 2.4 K/uL (0.8-4.8); LYMPHOCYTES % (AUTO) 35.7 % (20.5-51.5); MEAN CORPUSCULAR HEMOGLOBIN 30.1 uug (24.7-32.8); MEAN CORPUSCULAR HGB CONC 34 g/dL (32.3-35.6); MEAN CORPUSCULAR VOLUME 89.5 fL (75.5-95.3); MONOCYTES # (AUTO) 0.8 K/uL (0.1-1.30); MONOCYTES % (AUTO) 12.2 % (0.0-11.0); NEUTROPHILS # (AUTO) 3.4 K/uL (1.8-8.9); NEUTROPHILS % (AUTO) 50.7 % (38.5-71.5); PLATELET COUNT (AUTO) 245 K/uL (179-408); RED BLOOD CELL COUNT(AUTO) 4.15 MIL/uL (3.63-4.92); RED CELL DISTRIBUTION WIDTH 14.2 % (12.3-17.7); WHITE BLOOD COUNT (AUTO) 6.7 K/uL (3.8-11.8)
[2022-10-16 08:02] LABS: DIFFERENTIAL COMMENT 1
[2022-10-16 08:06] VITALS: BP 156/98; TEMP 98.1; O2SAT 98
[2022-10-16 08:11] LABS: CALCIUM 9.2 mg/dL (8.5-10.1); CREATININE 0.7 mg/dL (0.6-1.3); POTASSIUM 4.5 mmol/L (3.5-5.1)
[2022-10-16] MEDS: DIVALPROEX SPRINKLE 125 MG CAP.SPRINK PO SCH ×3 (08:12→16:15)
[2022-10-16] MEDS: SODIUM CHLORIDE 1,000 MG TABLET PO SCH ×4 (08:12→21:18)
[2022-10-16] MEDS: QUETIAPINE FUMARATE 25 MG TABLET PO SCH ×2 (08:13→12:38)
[2022-10-16] MEDS: LISINOPRIL 20 MG TABLET PO SCH (08:15)
[2022-10-16] MEDS: CLONAZEPAM 0.5 MG TABLET PO PRN (16:29)
[2022-10-16 16:36] VITALS: BP 164/100; TEMP 98; O2SAT 99
[2022-10-16 20:39] VITALS: BP 119/78; TEMP 98; O2SAT 96
[2022-10-16] MEDS: OLANZAPINE 5 MG TABLET PO SCH (21:18)
[2022-10-16] MEDS: ATORVASTATIN 20 MG TABLET PO SCH (21:18)
[2022-10-17 07:37] LABS: *SODIUM RNDM,URINE 42 mmol/L (40-220)
[2022-10-17 08:09] VITALS: BP 149/107; TEMP 98; O2SAT 99
[2022-10-17] MEDS: DIVALPROEX SPRINKLE 125 MG CAP.SPRINK PO SCH ×3 (08:20→16:31)
[2022-10-17] MEDS: QUETIAPINE FUMARATE 25 MG TABLET PO SCH ×2 (08:20→12:29)
[2022-10-17] MEDS: SODIUM CHLORIDE 1,000 MG TABLET PO SCH ×4 (08:21→20:34)
[2022-10-17] MEDS: LISINOPRIL 20 MG TABLET PO SCH (08:21)
[2022-10-17 16:33] VITALS: BP 162/111; TEMP 98; O2SAT 98
[2022-10-17] MEDS: CLONAZEPAM 0.5 MG TABLET PO PRN (16:35)
[2022-10-17 20:00] VITALS: BP 149/95; TEMP 97; O2SAT 97
[2022-10-17] MEDS: OLANZAPINE 5 MG TABLET PO SCH (20:34)
[2022-10-17] MEDS: ATORVASTATIN 20 MG TABLET PO SCH (20:34)
[2022-10-18 07:54] VITALS: BP 133/97; TEMP 98.4; O2SAT 98
[2022-10-18] MEDS: SODIUM CHLORIDE 1,000 MG TABLET PO SCH ×4 (08:42→21:30)
[2022-10-18] MEDS: QUETIAPINE FUMARATE 25 MG TABLET PO SCH ×2 (08:42→12:19)
[2022-10-18] MEDS: DIVALPROEX SPRINKLE 125 MG CAP.SPRINK PO SCH ×3 (08:42→16:43)
[2022-10-18] MEDS: LISINOPRIL 20 MG TABLET PO SCH (08:43)
[2022-10-18 15:18] VITALS: BP 132/84; TEMP 98.4; O2SAT 98
[2022-10-18 20:22] VITALS: BP 136/86; TEMP 98.3; O2SAT 98
[2022-10-18] MEDS: ATORVASTATIN 20 MG TABLET PO SCH (21:30)
[2022-10-18] MEDS: OLANZAPINE 5 MG TABLET PO SCH (21:57)
[2022-10-19 07:54] LABS: BASOPHILS % (AUTO) 0.7 % (0.0-2.0); EOSINOPHILS % (AUTO) 0.7 % (0.0-7.0); HEMATOCRIT 36.1 % (31.2-41.9); HEMOGLOBIN 12.3 g/dL (10.9-14.3); LYMPHOCYTES # (AUTO) 2.1 K/uL (0.8-4.8); LYMPHOCYTES % (AUTO) 31.9 % (20.5-51.5); MEAN CORPUSCULAR HEMOGLOBIN 30.3 uug (24.7-32.8); MEAN CORPUSCULAR HGB CONC 34 g/dL (32.3-35.6); MEAN CORPUSCULAR VOLUME 89.1 fL (75.5-95.3); MONOCYTES # (AUTO) 0.9 K/uL (0.1-1.30); MONOCYTES % (AUTO) 13.4 % (0.0-11.0); NEUTROPHILS # (AUTO) 3.5 K/uL (1.8-8.9); NEUTROPHILS % (AUTO) 53.3 % (38.5-71.5); PLATELET COUNT (AUTO) 231 K/uL (179-408); RED BLOOD CELL COUNT(AUTO) 4.05 MIL/uL (3.63-4.92); RED CELL DISTRIBUTION WIDTH 14.3 % (12.3-17.7); WHITE BLOOD COUNT (AUTO) 6.6 K/uL (3.8-11.8)
[2022-10-19 07:56] LABS: DIFFERENTIAL COMMENT 1
[2022-10-19 08:04] LABS: CALCIUM 9.8 mg/dL (8.5-10.1); CREATININE 0.7 mg/dL (0.6-1.3); POTASSIUM 4.4 mmol/L (3.5-5.1)
[2022-10-19 08:14] VITALS: BP 164/99; TEMP 98; O2SAT 98
[2022-10-19] MEDS: SODIUM CHLORIDE 1,000 MG TABLET PO SCH ×4 (09:36→21:15)
[2022-10-19] MEDS: LISINOPRIL 20 MG TABLET PO SCH (09:36)
[2022-10-19] MEDS: DIVALPROEX SPRINKLE 125 MG CAP.SPRINK PO SCH ×3 (09:36→17:49)
[2022-10-19] MEDS: QUETIAPINE FUMARATE 25 MG TABLET PO SCH ×2 (09:40→13:22)
[2022-10-19 16:00] VITALS: BP 124/91; TEMP 97.7; O2SAT 98
[2022-10-19 16:15] VITALS: BP 124/91; TEMP 97.7; O2SAT 98
[2022-10-19 20:00] VITALS: BP 119/70; TEMP 97.8; O2SAT 96
[2022-10-19] MEDS: OLANZAPINE 5 MG TABLET PO SCH (21:14)
[2022-10-19] MEDS: ATORVASTATIN 20 MG TABLET PO SCH (21:15)
[2022-10-20 05:54] LABS: *SODIUM RNDM,URINE 35 mmol/L (40-220)
[2022-10-20 07:30] VITALS: BP 175/104; TEMP 97.8; O2SAT 100
[2022-10-20 07:49] VITALS: BP 175/104
[2022-10-20] MEDS: LISINOPRIL 20 MG TABLET PO SCH (07:49)
[2022-10-20] MEDS: DIVALPROEX SPRINKLE 125 MG CAP.SPRINK PO SCH ×2 (08:54→12:06)
[2022-10-20] MEDS: QUETIAPINE FUMARATE 25 MG TABLET PO SCH ×2 (08:54→12:06)
[2022-10-20] MEDS: SODIUM CHLORIDE 1,000 MG TABLET PO SCH ×2 (08:54→12:06)
== END 2022-10-20 12:30 | DRG 885 ==
LOC: ER 00:32 → GPS 07:46
PROVIDERS: ADMIT Psychiatry & Neurology Psychiatry; ATTEND Nurse Practitioner Acute Care
DX: F25.9 Schizoaffective disorder, unspecified (principal); N39.0 Urinary tract infection, site not specified; E22.2 Syndrome of inappropriate secretion of antidiuretic hormone; E78.5 Hyperlipidemia, unspecified; F20.0 Paranoid schizophrenia; F39 Unspecified mood [affective] disorder; Z20.822 Contact with and (suspected) exposure to COVID-19; F29 Unspecified psychosis not due to a substance or known physiological condition; Z73.6 Limitation of activities due to disability; I10 Essential (primary) hypertension; F41.9 Anxiety disorder, unspecified; Z79.899 Other long term (current) drug therapy
CPT/HCPCS: 36415; 80164; 83735; 84100; 84300; 84443; 84550; 85025; 93005; A4663; G0480; J0696